=== PATIENT | female | born 1985 | race Two or more races ===

== ENCOUNTER → 2020-12-20 14:53 | Outpatient (BNVA) | payer OTHER, SELFPAY | PROVIDERS: PCP Nurse Practitioner Family; Visit Provider Internal Medicine | DX: S29.012A Strain of muscle and tendon of back wall of thorax, initial encounter (principal); S46.802A Unspecified injury of other muscles, fascia and tendons at shoulder and upper arm level, left arm, initial encounter; X50.1XXA Overexertion from prolonged static or awkward postures, initial encounter | CPT/HCPCS: 73030; 99203 ==

== ENCOUNTER → 2020-12-24 13:38 | Outpatient (BNVA) | payer OTHER, SELFPAY | PROVIDERS: PCP Nurse Practitioner Family; Visit Provider Physician Assistant | DX: S46.912A Strain of unspecified muscle, fascia and tendon at shoulder and upper arm level, left arm, initial encounter (principal); X50.9XXA Other and unspecified overexertion or strenuous movements or postures, initial encounter; M79.632 Pain in left forearm | CPT/HCPCS: 99213 ==

== ENCOUNTER → 2021-01-01 08:28 | Outpatient (BNVA) | payer OTHER, SELFPAY | PROVIDERS: PCP Nurse Practitioner Family; Visit Provider Internal Medicine | DX: M77.12 Lateral epicondylitis, left elbow (principal) | CPT/HCPCS: 99213 ==

== ENCOUNTER → 2021-01-08 11:30 | Outpatient (BNVA) | payer OTHER, SELFPAY | PROVIDERS: PCP Nurse Practitioner Family; Visit Provider Physician Assistant | DX: M77.12 Lateral epicondylitis, left elbow (principal) | CPT/HCPCS: 99213 ==

== ENCOUNTER → 2023-02-11 09:10 | Outpatient (BNVA) | payer MEDICAID, SELFPAY | PROVIDERS: PCP Internal Medicine; Visit Provider Advanced Practice Midwife | DX: N92.6 Irregular menstruation, unspecified (principal); Z32.02 Encounter for pregnancy test, result negative | CPT/HCPCS: 81025; 99212 ==

== ENCOUNTER 2023-04-08 13:07 | Outpatient (REF) | payer MEDICAID, SELFPAY ==
--- NOTE | ~2023-04-08 | XR_ITS ---
EXAMINATION: XR KNEE, LEFT CLINICAL INFORMATION: Pain, bruising and swelling status-post injury. COMPARISON: None available. TECHNIQUE: AP, lateral, and both oblique views of the left knee. FINDINGS: Bones and soft tissues are normal. No fracture or joint effusion. Alignment is anatomic. Joint spaces are well maintained. No abnormal soft tissue calcification. XR/XR knee LT 4V IMPRESSION: Normal left knee.
== END 2023-04-08 13:08 | disposition home or self-care (01) ==
LOC: HO.HHCX 13:07
PROVIDERS: Visit Provider Family Medicine
DX: M25.562 Pain in left knee (principal)
CPT/HCPCS: 73564

== ENCOUNTER 2024-01-19 17:43 | Outpatient (REF) | payer MEDICAID, SELFPAY ==
[2024-01-19 19:06] LABS: Appearance Urine Cloudy; Color Urine Yellow; Glucose Urine UA Negative (Negative); Leukocyte Esterase Urine Negative (Negative); Nitrite Urine Negative (Negative); UMIC TRIGGER UACC YES; Urine Blood Trace (Negative); Urine Ketones Negative (Negative); Urine Protein Negative (Neg-Trace)
[2024-01-19 19:11] LABS: Bacteria Urine 1+ (None Seen); Hyaline Casts Urine 0-2 /LPF (0-2); WBC Urine 0-5 /HPF (0-5)
[2024-01-21 05:48] LABS: C. trachomatis RNA TMA NOT DETECTED (NOT DETECTED); N. gonorrhoeae RNA TMA NOT DETECTED (NOT DETECTED)
== END 2024-01-19 17:44 | disposition home or self-care (01) ==
LOC: HO.HHCLNP 17:43
PROVIDERS: Visit Provider Internal Medicine Geriatric Medicine
DX: M54.50 Low back pain, unspecified (principal); R31.29 Other microscopic hematuria; N93.9 Abnormal uterine and vaginal bleeding, unspecified
CPT/HCPCS: 36415; 81001; 81513; 87491; 87591

== ENCOUNTER 2024-03-03 07:53 | Outpatient (AMB) | payer MEDICAID, SELFPAY ==
--- NOTE | 2024-03-03 08:14 | A.OFFVIS_ITS ---
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 Complaining of irregular menstrual cycles Last Pap/HPV was many years ago [facility] Surgical History History of loop electrical excision procedure (LEEP) History of tubal ligation Social History Household Members: Spouse and Children Housing: House Alcohol intake: never Patient Tobacco Use Status: Never used Tobacco Female Reproductive History Menstrual Date of last menstrual period: 01/06/24 control method: permanent sterilization Total pregnancies: 3 Full term: 3 Number of Living Children: 3 Review of Systems Const All systems reviewed & are unremarkable except as noted in HPI and below Card Reports as per HPI Resp Reports as per HPI GI Reports as per HPI and Reports no additional complaints Reports as per HPI Physical Exam Vital Signs: Last Vital Signs BP 110/68 03/03/24 08:21 BMI result Body Mass Index 32.3 Const General: cooperative, healthy appearing and comfortable Chest Chest palpation & inspection: normal inspection of the chest and normal palpation of entire chest wall Breast/axilla inspection: normal inspection of the breasts and normal inspection of the axillae Breast/axilla palpation: normal palpation of the breasts, normal palpation of the axillae and no axillary lymphadenopathy Resp Effort & Inspection: normal respiratory effort Auscultation: clear to auscultation bilaterally Percussion: percussion normal Cardio Palpation: normal PMI Rate: regular rate Rhythm: regular rhythm Heart sounds: no murmurs and no rubs Peripheral pulses: Peripheral pulses 2+ throughout GI Inspection: Yes normal to inspection Palpation (GI): Soft to palpation, nontender, no guarding, not rigid and No hepatosplenomegaly present Percussion: Yes normal to percussion Auscultation: normal bowel sounds Rectal Exam - Female: deferred General: Yes bladder normal to palpation External Female Exam: No lesion Speculum Exam - Vagina: normal appearance of the vagina, normal palpation, normal vaginal discharge and not erythematous Speculum Exam - Cervix: normal appearance of the cervix and normal palpation Bimanual exam- vagina & uterus: normal bimanual exam, normal palpation, uterine size normal, bladder normal to palpation, consistency normal and normal palpation Bimanual Exam- Adnexa, other: normal adnexae, no masses and no tenderness Results AMB Test Urine AMB Test Urine Negative Last Edit by Flavia Arias CMA on 08:23 Results Reviewed Results Reviewed: Laboratory Last Values Tst Clinic Negative 03/03/24 08:22 Assessment & Plan Assessment & Plan (1) Well woman exam: Code(s): Z01.419 - Encounter for gynecological examination (general) (routine) without abnormal findings Category: Medical Plan: Cotesting done. Counseled the patient about the recommended dietary allowance of 1000 mg of Calcium & 600 IU of vitamin D. The patient was instructed to perform monthly self-breast exams and to schedule an annual exam in a year; All questions answered and the patient verbalized understanding. Instructed the patient to schedule annual exam in a year (2) Abnormal uterine bleeding (AUB): Code(s): N93.9 - Abnormal uterine and vaginal bleeding, unspecified Category: Medical Plan: Co testing done, GC and chlamydia taken CBC, TSH, prolactin, HCG, and pelvic ultrasound ordered. Discussed with the patient the different causes of abnormal bleeding including thyroid disorders, uterine and ovarian pathology, endometrial hyperplasia, carcinoma and other potential causes. Discussed with the patient the work up including CBC (to r/o anemia), TSH, prolactin, pelvic Ultrasound, endometrial biopsy to r/o endometrial pathology. All questions answered and the patient verbalized understanding. Instructed the patient to schedule an appointment for an endometrial biopsy in 2 weeks. Orders: Orders TSH reflex Free T4 Today N93.9 - Abnormal uterine and vaginal bleeding, unspecified HCG Quantitative Today N93.9 - Abnormal uterine and vaginal bleeding, unspecified Complete Blood Count no Diff Today N93.9 - Abnormal uterine and vaginal bleedin g, unspecified AMB HCG Urine Test Today Z32.02 - Encounter for test, result negative Prolactin Today N93.9 - Abnormal uterine and vaginal bleeding, unspecified US pelvic and transvaginal Today N93.9 - Abnormal uterine and vaginal bleeding, unspecified Coding Level of Care Code New Pt Prev Care 18-39yr(03640 Diagnoses Well woman exam Z01.419 Abnormal uterine bleeding (AUB) N93.9
[2024-03-03 08:21] VITALS: BP 110/68; BMI 32.3
== END 2024-03-03 08:16 | disposition home or self-care (01) ==
LOC: HO.HWS 07:53
PROVIDERS: PCP Internal Medicine; Visit Provider Obstetrics & Gynecology
DX: Z01.419 Encounter for gynecological examination (general) (routine) without abnormal findings (principal); N93.9 Abnormal uterine and vaginal bleeding, unspecified; Z32.02 Encounter for pregnancy test, result negative
CPT/HCPCS: 99385

== ENCOUNTER 2024-03-03 07:53 | Outpatient (REF) | payer MEDICAID, SELFPAY ==
[2024-03-03 17:26] LABS: CT PCR NOT DETECTED (Not Detect.); NG PCR NOT DETECTED (Not Detect.)
[2024-03-11 04:04] LABS: HPV mRNA E6/E7 rflx Not Detected (Not Detected)
== END 2024-03-03 07:54 | disposition home or self-care (01) ==
LOC: HO.LNP 07:53
PROVIDERS: PCP Internal Medicine; Visit Provider Obstetrics & Gynecology
DX: Z01.419 Encounter for gynecological examination (general) (routine) without abnormal findings (principal); N93.9 Abnormal uterine and vaginal bleeding, unspecified; Z32.02 Encounter for pregnancy test, result negative
CPT/HCPCS: 0353U; 81025; 87624; 88142; 99385

== ENCOUNTER 2024-11-15 10:19 | Outpatient (AMB) | payer MEDICAID, SELFPAY ==
--- NOTE | 2024-11-15 10:38 | MHC.OFFVIS ---
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 She actually does not need control for control sake she wants something to help her with her heavy crampy miserable periods. She says she had about a month or so last year where they were irregular and that is when she saw Dr. Nichols but she never got called for any appointments after that. She says that ever since then they are very regular and she tracks them with her zechariah and they last 4 days but they are very heavy she is not having any irregular bleeding at all. She has her tubes tied so she did not need control per se. [facility] Surgical History History of loop electrical excision procedure (LEEP) History of tubal ligation Social History Household Members: Spouse and Children Housing: House Alcohol intake: never Patient Tobacco Use Status: Never used Tobacco Patient : No Female Reproductive History Menstrual Age of Menarche: 11 Duration of menses: 3-5 days Date of last menstrual period: 10/19/24 control method: permanent sterilization Permanent Sterilization: BTL Total pregnancies: 3 Full term: 3 Number of Living Children: 3 History of abnormal pap smear: Yes (more than 15 years ago) History of STI: Yes (Chlamydia in twenties) Physical Exam Vital Signs: Last Vital Signs BP 102/70 11/15/24 10:45 BMI result Body Mass Index 34.2 Other: Multiparous cervix there is a creamy yellowish slightly bubbly discharge that may be consistent with either BV or trich we will await testing results. External Female Exam: normal external appearance and normal appearance of the urethra Speculum Exam - Vagina: normal appearance of the vagina Speculum Exam - Cervix: normal appearance of the cervix and Cervical os closed Assessment & Plan Assessment & Plan (1) Menorrhagia with regular cycle: Code(s): N92.0 - Excessive and frequent menstruation with regular cycle Category: Medical (2) Encounter for screening examination for sexually transmitted disease: Code(s): Z11.3 - Encounter for screening for infections with a predominantly sexual mode of transmission Category: Medical Plan Reviewed her menses. Per her history today they are very regular and heavy lasting 4 days and there was only the 1 time that they were irregular and that is when she saw Dr. Nichols. Given this it may not be necessary to do all of the testing that was propose at that time unless that recurs. 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 She has used Depo-Provera the Nexplanon or Implanon when she used it, and now she has her tubes tied. Her children a 1916 and 14. Her last menstrual period was October 19 and her zechariah is telling her periods due in 2 days in her previous period before that was September 25 and previous to that was August 30 all of them lasting 4 day she has needed to call out of work because of the cramping. Discussed the screening for STIs testing done today for gonorrhea chlamydia trichomoniasis and I ordered testing for HIV hep B hep C and syphilis which she can get downstairs in the lab. Discussed that if there is anything to treat vaginally which I suspect there might be then we would need to treat that 1st and have a negative test of cure before we would place a Mirena.. Otherwise proposed a Mirena IU S with levonorgestrel to helps in the lining of the uterus and make her periods hydraulic press operator discussed that some women have their periods actually go away but even if they get hydraulic press operator than that would be an improvement. Discussed the reasons why I prefer to insert at beginning of her. Both it is more easy for her and also the provider but also it helps her bleeding profile going forward. Discussed that she should call when she gets her.. She is on the portal and may check her lab results herself but told to expect that we maybe calling her if there is anything to treat. Coding Level of Care Code Est Pt Level 3 (19908) Diagnoses Menorrhagia with regular cycle N92.0 Encounter for screening examination for sexually transmitted disease Z11.3 Time Spent (min) 25 Comment Discussing bleeding profile, potential STIs, and IUS..
[2024-11-15 10:45] VITALS: BP 102/70; BMI 34.2
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
== END 2024-11-15 11:27 | disposition home or self-care (01) ==
PROVIDERS: PCP Internal Medicine; Visit Provider Advanced Practice Midwife
DX: N92.0 Excessive and frequent menstruation with regular cycle (principal); Z11.3 Encounter for screening for infections with a predominantly sexual mode of transmission
CPT/HCPCS: 99213

== ENCOUNTER 2024-11-15 10:19 | Outpatient (REF) | payer MEDICAID, SELFPAY ==
--- OUTSIDE RECORDS SUMMARY | 2024-11-15 13:04 | XMS_ITS | Clinical Summary ---
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 and [facility] paperwork requesting intermittent leave for PT and [...] if no improvement -advised pt to contact [facility] if her pain worsens after returning back to work Daytime somnolence 09/15/2022 Headache 09/15/2022 Migraine without aura, not refractory 09/15/2022 Pain of right breast 09/15/2022 Visual impairment 09/15/2022 Mild intermittent asthma 10/07/2017 Encounters Date Type Department Care Team Description 10/13/2024 Telephone [facility] MED[facility]INE [address] [place] [phone] Maren Abdullahi MD November recall from Last [...] Description 12/13/2024 3:15 PM EST Procedure Visit [facility] [address] [place] [address] Maren Abdullahi MD [address] [place] [address] Health Maintenance Due Date Last Done Comments [...] HPV nRNA E6/E7 Not Detected Not Detected [facility] Comment:Methodology: Transcr iption-Mediated AmplificationThis assay detects E6/E7 viral messenger RNA (mRNA) from 14high-risk HPV types (16,18,31,33,35,39,45,51,52,56,58,59,66,68).Cervical sources are required for HPV testing.If a vaginal source from a patient who has had atotal hysterectomy with removal of cervix wassubmitted, please contact the testing laboratoryfor alternative testing options.For additional information, please refer tohttp://[email or web address]/faq/[email or web address](This link if provided for information/educational purposes only.)THIS TEST WAS PERFORMED AT:[employer] [place] [phone] MERIDA MD HPV mRNA E6/E7 TNP [facility] HPV 16 RNA TNP [facility] HPV 18/45 RNA [facility] 03/03/2024 8:36 AM EDT 03/07/2024 7:25 AM EDT Maren Abdullahi MD LAB CYTOLOGY ORDERABLES Final Result [facility] [address] [place] [address] [phone] * Pap Smear (03/03/2024 8:36 AM EDT) 03/03/2024 8:36 AM EDT 03/07/2024 7:25 AM EDT Narrative [facility] - 03/23/2024 4:55 PM EDT ----- ------- Name: Lisa Coburn ?Age/Sex: 38/F ? : 1985 Unit#: [id number] ?? Attend Dr: Alex Nichols MD ?Re03/03/24 ?Status: DEP REF ? Location: HO.LN ?Disch: ? ----- ------- SPEC : [id number] ? RECD: 03/07/24 ? STATUS: ??SOUT ? REQ NUM: [id number] ? BEV: 03/03/24-36 ? SUBM DR: Alex [...] 66, 68) ? HPV testing performed by [facility], [place], [place]. ??See reference laboratory ?? portion of the EMR for entire report. ?Clinical Information LMP:UNK Previous PAP test:UNK ? Material Received ?? ThinPrep-Cervical Copies To: ?? Maren Abdullahi MD ?? [address] [facility] ?? [place] [address] ? Alex Nichols MD ?? [address] [facility] ?? [place] [address] ?? [phone] ----- ------- Signed (signature on file) Esme Cabezas MD 03/23/24 3476 ? ----- ------- ? END OF REPORT ? us Generic External Data Provider LAB CYTOLOGY KYLE ULLOA Final Result [facility] [address] [place] [address] [phone] * HIV AB/AG (06/05/2020 11:17 AM EDT) [facility] HIV AG/AB NONREACTIVE NR FOUNDATI ON LAB [...] detection of this assay. ?? [employer] HIV Ag/Ab Combo assay result and supplemental assay results should be interpreted in conjunction with the patient's clinical presentation, history and other laboratory results. ??If the results are inconsistent with clinical evidence, additional testing is suggested to confirm the result. 06/05/2020 11:1 7 AM EDT us Historical Provider HISTORICAL/NON ORDERABLE LABS Final Result [facility] [address] from Last 3 Months or Most Recently Relevant to Health Maintenance Insurance C3 Care Teams Hospital Liaison Relationship Specialty Start Date End Date Maren Abdullahi MD [address] [place] [phone] PCP - General Family Medicine 11/23/20
[2024-11-16 06:15] LABS: CT PCR NOT DETECTED (Not Detect.); NG PCR NOT DETECTED (Not Detect.)
[2024-11-16 11:11] LABS: Bacterial Vaginosis PCR POSITIVE (Negative); Candida Group PCR NOT DETECTED (Not Detect); Candida glab krusei PCR NOT DETECTED (Not Detect); Trichomonas vaginalis PCR NOT DETECTED (Not Detect)
== END 2024-11-15 10:20 | disposition home or self-care (01) ==
LOC: HO.LAB 10:19
PROVIDERS: PCP Internal Medicine; Visit Provider Advanced Practice Midwife
DX: N92.0 Excessive and frequent menstruation with regular cycle (principal); Z20.2 Contact with and (suspected) exposure to infections with a predominantly sexual mode of transmission; Z11.3 Encounter for screening for infections with a predominantly sexual mode of transmission; N89.8 Other specified noninflammatory disorders of vagina
CPT/HCPCS: 81515; 87491; 87591; 99212

== ENCOUNTER 2024-11-15 11:49 | Outpatient (REF) | payer MEDICAID, SELFPAY ==
[2024-11-15 13:32] LABS: Hematocrit 40.7 % (37.0-47.0); Hemoglobin 13.4 g/dl (12.0-16.0); Mean Corpuscular HGB Conc 32.9 g/dl (31.0-35.0); Mean Corpuscular Hemoglobin 30.3 pg (27.0-33.0); Mean Corpuscular Volume 92.1 fL (80.0-98.0); Mean Platelet Volume 11.2 fL (9.4-12.3); Platelet Count 277 X10*3/uL (160-400); Red Blood Count 4.42 X10*6/uL (4.20-5.50); Red Cell Distribution Width 12.3 % (11.0-16.0); White Blood Count 6.7 X10*3/uL (4.8-10.8)
[2024-11-15 14:11] LABS: HCG Quantitative < 2 mIU/mL; TSH reflex Free T4 2.39 uIU/mL (0.32-4.0)
[2024-11-16 16:08] LABS: Prolactin 9.4 ng/mL
== END 2024-11-15 11:50 | disposition home or self-care (01) ==
LOC: HO.HHCL 11:49
PROVIDERS: Visit Provider Obstetrics & Gynecology
DX: N93.9 Abnormal uterine and vaginal bleeding, unspecified (principal)
CPT/HCPCS: 36415; 84146; 84443; 84702; 85027

== ENCOUNTER 2025-02-13 10:36 | Outpatient (AMB) | payer MEDICAID, SELFPAY ==
--- NOTE | 2025-02-13 11:01 | A.OFFVIS_ITS ---
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 She had her tubes tied so she does not need it for contraception but her periods have been getting heavier and heavier and she wants to do something about it she had a Mirena several years ago and had no issues with it so she is eager to try it again. She had BV in October and took the metronidazole and noticed an improvement in her discharge. She has no concerns about STIs at all. [facility] Surgical History History of loop electrical excision procedure (LEEP) History of tubal ligation Social History Household Members: Spouse and Children Housing: House Alcohol intake: never Patient Tobacco Use Status: Never used Tobacco Female Reproductive History Menstrual Age of Menarche: 11 Date of last menstrual period: 01/10/25 Total pregnancies: 3 Full term: 3 Date of last pap smear: 03/03/24 (negative pap smear, negative hpv ) History of abnormal pap smear: Yes Physical Exam Vital Signs: Last Vital Signs BP 112/72 02/13/25 11:04 BMI result Body Mass Index 33.9 Other: Very heavy menses noted bimanual done. Cervix multiparous very posterior deep in pelvis uterus small to medium sized anteverted mobile nontender adnexa nontender. See procedures for insertion but easy insertion procedure wants cervix fully visualized with the use of a very long large Graves speculum. Uterus sounded to 8 and half cm. Smooth insertion of Mirena IU S and strings trimmed to 2-1/2-3 cm very little bleeding from tenaculum sites but large heavy menses. Patient will be seeing her primary care provider this coming Juan Luis and I recommend getting a CBC so that we can then assess for anemia and if she is anemic then we can assess for improvement over time. External Female Exam: normal external appearance Speculum Exam - Vagina: normal appearance of the vagina and normal vaginal discharge Speculum Exam - Cervix: normal appearance of the cervix Bimanual exam- vagina & uterus: normal bimanual exam, uterine size normal, consistency normal, uterine mobility normal, uterine shape normal and non-tender Bimanual Exam- Adnexa, other: normal adnexae, no masses and No adnexal tenderness Office Procedures IUD Insert/Removal Details Details: ---Patient is here for her IUD insertion. Is on day 2 of her menses. Bimanual exam was done. Her uterus is firm, nontender, and appropriate sized, and is antiverted . The cervix was swabbed with Betadine. Tenaculum was placed on the cervix slowly to minimize cramping. The uterus was sounded slowly and gently she show a measurement of 8.5 cm. The IUD was removed from its package, after checking identifying information and lot dates and expiration dates and and gently inserted into the os, as per the IUD insertion procedure. * The strings were then trimmed to 2.5-3 centimetres. The tenaculum was removed and gentle pressure applied with a swab, until any bleeding subsided from the tenaculum sites. The speculum was gently removed. The patient sat up. I Reviewed what to expect, and what indications would necessitate a call. Pt to call for fever, untoward pain or cramping. I reviewed any appropriate backup method. Pt to return for recheck as scheduled. 59886-OHC Insertion Procedure code (CPT) selection complete Office Meds Mirena 21 mcg/24 hr (up to 8 years) 52 mg intrauterine device Performing Provider: Elena Velez CNM Performing Location: [facility] Administered by: Flavia Arias CMA on 02/13/25 13:09 Dose Route Admin Location Dispensed Lot Number Expiration Date [facility] Application Administrator 1 device intrauterine 1 ea Results AMB Test Urine AMB Test Urine Negative Last Edit by Flavia Arias CMA on 13:11 Results Reviewed Results Reviewed: Laboratory Last Values [facility] Negative 02/13/25 13:02 Name: Lisa Coburn Age/Sex: 39/F : 1985 Unit#: [id number] Attend Dr: Elena Velez Tavia SANIYA Re11/15/24 Status: DEP REF Location: .LAB Disch: SPEC : [id number] BEV: 11/15/24-UNK STATUS: COMP REQ : [id number] RECD: 11/15/[address]: Elena Velez [facility] COMP: 11/16/24-1111 ENTERED: 11/15/[address]: Maren Abdullahi MD ORDERED: BV Panel Test Result Flag Reference TV PCR NOT DETECTED Not Detect BV PCR POSITIVE A Negative The BV organism targets of the Xpert Xpress MVP test can be commensal in women; Xpert Xpress MVP positive results for bacterial vaginosis should be considered in conjunction with other clinical and patient information to determine the disease status. Organisms that are not detected by the Xpert Xpress MVP test have also been reported to be associated with BV and aerobic vaginitis. The Xpert Xpress MVP test performance has not been evaluated in patients under the age of 14. Kayla Grp PCR NOT DETECTED Not Detect Can gla-kru NOT DETECTED Not Detect END OF REPORT Assessment & Plan Assessment & Plan (1) Menorrhagia with regular cycle: Code(s): N92.0 - Excessive and frequent menstruation with regular cycle Category: Medical (2) Encounter for insertion of Mirena IUD: Code(s): Z30.430 - Encounter for insertion of intrauterine contraceptive device Category: Medical (3) Presence of 52 mg levonorgestrel-releasing intrauterine device (IUD): Comment: Inserted today 02/13/2025 on day 2 of her heavy menses into 8-1/2 cm sounded anteverted uterus no problems. Code(s): Z97.5 - Presence of (intrauterine) contraceptive device Category: Social Hx Plan Very heavy menses noted bimanual done. Cervix multiparous very posterior deep in pelvis uterus small to medium sized anteverted mobile nontender adnexa nontender. See procedures for insertion but easy insertion procedure wants cervix fully visualized with the use of a very long large Graves speculum. Uterus sounded to 8 and half cm. Smooth insertion of Mirena IU S and strings trimmed to 2-1/2-3 cm very little bleeding from tenaculum sites but large heavy menses. Patient will be seeing her primary care provider this coming Thursday and I recommend getting a CBC so that we can then assess for anemia and if she is anemic then we can assess for improvement over time. Orders: Orders AMB IUD Insertion/Removal - Patient Supply Today Z30.430 - Encounter for insertion of intrauterine contraceptive device AMB IUD Insertion/Removal - Practice Supplied Today Z30.430 - Encounter for insertion of intrauterine contraceptive device AMB IUD Insertion/Removal - Practice Supplied Today Z30.430 - Encounter for insertion of intrauterine contraceptive device AMB HCG Urine Test Today Z32.02 - Encounter for test, result negative Medications: New ParaGard T 380A (copper) 1 device intrauterine ONCE 1 ea 0RF NS Z30.430 - Encounter for insertion of intrauterine contraceptive device Mirena (levonorgestrel) 1 device intrauterine ONCE 1 ea 0RF NS Z30.430 - Encounter for insertion of intrauterine contraceptive device Mirena (levonorgestrel) 1 device intrauterine ONCE 1 ea 0RF NS Z30.430 - Encounter for insertion of intrauterine contraceptive device Coding Level of Care Code Est Pt Level 3 (63163) Diagnoses Menorrhagia with regular cycle N92.0 Encounter for insertion of Mirena IUD Z30.430 Presence of 52 mg levonorgestrel-releasing intrauterine device (IUD) Z97.5 CPT Codes Details - CPT: 65484-RBQ Insertion ([id number])
[2025-02-13 11:04] VITALS: BP 112/72; BMI 33.9
--- OUTSIDE RECORDS SUMMARY | 2025-02-13 12:31 | XMS_ITS | Clinical Summary ---
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 Name Role Phone Maren Abdullahi MD Primary [...] ligamental injury though no mechanical symptoms - [place] paperwork completed in office for her [employer] staffing agency and [facility] paperwork requesting intermittent leave for PT [...] if no improvement -advised pt to contact [facility] if her pain worsens after returning back to work Daytime somnolence 09/15/2022 Headache 09/15/2022 Migraine without aura, not refractory 09/15/2022 Pain of right breast 09/15/2022 Visual impairment 09/15/2022 Mild intermittent asthma 10/07/2017 Encounters Date Type Department Care Team Description 02/10/2025 Patient Outreach [facility] & PEDS [address] [facility] [place] [address] Maren Abdullahi MD Pre-visit Planning (SDOH negative. Tobacco screening negative.) 12/30/2024 Population Health Risk Score [facility] (C3) Department [address] [facility] [address] [place] [address] Provider, Population Health Generic 12/07/2024 Telephone [facility] MEDICINE [address] [place] [address] Maren Abdullahi MD 12/06/2024 Travel 11/15/2024 Orders Only GENERIC EXTERNAL DATA DEPARTMENT Provider, Generic External Data from Last 3 Months Immunizations Name Administration Dates Next Due DTaP 12/23/1990, 8,01/11/1987,1986 Hep A, Adult 12/28/2014,09/22/2013 Hep B, Adolescent or Pediatric 01/10/1998,1996,08/19/1997 Hib (HbO) 12/23/1990 IPV 12/23/1990, 8,11/12/1987,1986 Influenza, Split (incl. [...] your housing situation today? I have osorio garrison 02/10/[address] you li ve. Do you have problems with any of the following? None of the above 02/10/2025 Food Insecurity Answer Date Recorded Within the past 12 months, y ou worried that your food would run out before you got money to buy more: Never True 02/10/2025 Within the past 12 months,th e food you bought just didn't last and you didn't have enough money to get more: Never True Transportation Answer Date Recorded In the past 12 months, has l ack of transportation kept you from medical appts, meetings, work or from getting things needed for daily living? No 02/10/2025 Utilities Answer Date Recorded In the past 12 months, has t he electric, gas, oil or water company threatened to shut off services in your home? No 02/10/2025 Depression Answer Date Recorded Patient Health Questionnaire-2 Score 0 04/08/2023 Internet Access Answer Date Recorded Internet Access Q1 Yes 02/10/2025 Internet Access Q2 Not on file 02/10/2025 Comments Unknown Sex and Gender Information Value [...] Care Team (Late st Contact Info) Description 02/17/2025 11:45 AM EDT Office Visit [facility] MEDICINE [address] [place], [place] [phone] Maren Abdullahi MD [address] [place] [address] Health Maintenance Due Date Last Done Comments Alcohol/Substance Use Screening 1998 Family Planning (PISQ) 2001 Hepatitis C Screening 2004 Pneumococcal Vaccine: Pediatrics (0 to 5 Years) and At-Risk Patients (6 to 49) Years) (1 of 2 - PCV) 2005 DTaP/Tdap/Td Vaccines (6 - Td or Tdap) 03/24/2021 03/24/2011, 01/31/2011, 03/16/2001, Additional history exists Depression Screening 04/08/2024 04/08/2023, 04/08/20 23 COVID-19 Vaccine (1 - season) 2024 Influenza Vaccine (#1) 2024 09/22/2013 Tobacco Screening 02/15/2025 02/16/2024 SDOH Screening 02/10/2026 02/10/2025 Pap Smear 03/03/2027 03/03/2024, 11/27/2021 Cervical Cancer [...] Procedure Name Priority Date/Time Associated Diagnosis Comments BACTERIAL VAGINOSIS PANEL Routine 11/15/2024 12:00 AM EST CHLAMYDIA/N. GONORRHOEAE RNA, TMA, UROGENITAL Routine 11/15/2024 12:00 AM EST HPV MRNA E6/E7 REFLEX TO HPV 16, 18/45 Routine 03/03/2024 8:36 AM EDT PAP SMEAR Routine 03/03/2024 8:36 AM EDT ZZZ HISTORICAL HIV AB/AG Routine 06/05/2020 11:17 AM EDT from Last 3 Months or Most Recently Relevant to Health Maintenance Results * (ABNORMAL) Bacterial Vaginosis (11/15/2024 12:00 AM EST) TRICHOMONAS VAGINALIS DETECTION BY PCR NOT DETECTED Not Detect [facility] BACTERIAL VAGINOSIS DETECTION BY PCR POSITIVE(A) Negative [facility] Comment:The BV organism targ ets of the Xpert Xpress MVP test can becommensal in women; Xpert Xpress MVP positive results forbacterial vaginosis should be considered in conjunction withother clinical and patient information to determine thedisease status. Organisms that are not detected by the XpertXpress MVP test have also been reported to be associatedwith BV and aerobic vaginitis.The Xpert Xpress MVP test performance has not been evaluatedin patients under the age of 14. KAYLA GROUP DETECTION BY PCR NOT DETECTED Not Detect [facility] Kayla glab krusei PCR NOT DETECTED Not Detect [facility] 11/15/2024 11/15/2024 Generic External Data Provider LAB MICROBIOLOGY - GENERAL ORDERABLES Final Result [facility] [address] [place] [phone] * Chlamydia/N. Gonorrhoeae RNA, TMA, Urogenitial (11/15/2024 12:00 AM EST) CT PCR NOT DETECTED Not Detect. [facility] Comment:A not detected test result does not exclude the possibilityof infection because test results can be affected byimproper specimen collection, concurrent antibiotic therapy,or the number of organisms in the specimen which may bebelow the sensitivity of the test. As with many diagnostictests, results from the Xpert CT/NG assay should beinterpreted in conjunction with other laboratory andclinical data available to the clinician.Xpert CT/NG performance has not been evaluated in patientsless than 14 years of age. The assay should not be used forthe evaluationof suspected sexual abuse or for other medico-legalindications. Additional testing is recommended in anycircumstance when false positive or false negative resultscould lead to adverse medical, social or psychologicalconsequences. NG PCR NOT DETECTED Not Detect. [facility] Comment:A not detected test result does not exclude the possibilityof infection because test results can be affected byimproper specimen collection, concurrent antibiotic therapy,or the number of organisms in the specimen which may bebelow the sensitivity of the test. As with many diagnostictests, results from the Xpert CT/NG assay should beinterpreted in conjunction with other laboratory andclinical data available to the clinician.Xpert CT/NG performance has not been evaluated in patientsless than 14 years of age. The assay should not be used forthe evaluationof suspected sexual abuse or for other medico-legalindications. Additional testing is recommended in anycircumstance when false positive or false negative resultscould lead to adverse medical, social or psychologicalconsequences. 11/15/2024 11/15/2024 Narrative [facility] - 11/16/2024 6:15 AM EST Vaginal Generic External Data Provider LAB MICROBIOLOGY - GENERAL ORDERABLES Final Result [facility] [address] [place] [phone] * HPV mRNA E6/E7 w/Reflex to HPV Genotypes 16, 18/45 (03/03/2024 8:36 AM EDT) HPV nRNA E6/E7 Not Detected Not Detected [facility] Comment:Methodology: Transcr iption-Mediated AmplificationThis assay detects E6/E7 viral messenger RNA (mRNA) from 14high-risk HPV types (16,18,31,33,35,39,45,51,52,56,58,59,66,68).Cervical sources are required for HPV testing.If a vaginal source from a patient who has had atotal hysterectomy with removal of cervix wassubmitted, please contact the testing laboratoryfor alternative testing options.For additional information, please refer tohttp://education.Wevod/faq/PGS838l7(This link if provided for information/educational purposes only.)THIS TEST WAS PERFORMED AT:[facility] [place] [phone] MERIDA MD HPV mRNA E6/E7 TNP [facility] HPV [facility] HPV 18/45 RNA [facility] 03/03/2024 8:36 AM EDT 03/07/2024 7:25 AM EDT Maren Abdullahi MD LAB CYTOLOGY ORDERABLES Final Result [facility] [address] [place] [phone] [phone] * Pap Smear (03/03/2024 8:36 AM EDT) 03/03/2024 8:36 AM EDT 03/07/2024 7:25 AM EDT Narrative [facility] - 03/23/2024 4:55 PM EDT ----- ------- Name: Lisa Coburn ?Age/Sex: 38/F ? : 1985 Unit#: [id number] ?? Attend Dr: Alex Nichols MD ?Re03/03/24 ?Status: DEP REF ? Location: HO.LNP ?Disch: ? ----- ------- SPEC : [id number] ? RECD: 03/07/24 ? STATUS: ??SOUT ? REQ NUM: [id number] ? BEV: 03/03/24-0836 ? SUBM DR: Alex Nichols MD ? ENTERED: ??03/07/24-1059 ?SP TYPE: Pap Smr ?OTHR DR: Maren [...] 66, 68) ? HPV testing performed by [employer], [place], [place]. ??See reference laboratory ?? portion of the EMR for entire report. ?Clinical Information LMP:UNK Previous PAP test:UNK ? Material Received ?? ThinPrep-Cervical Copies To: ?? Maren Abdullahi MD ?? [address] [facility] ?? [place] [address] ? Alex Nichols MD ?? [address] [facility] ?? [place] [address] ?? [phone] ----- ------- Signed (signature on file) Esme Cabezas MD 03/23/24 1495 ? ----- ------- ? END OF REPORT ? us Generic External Data Provider LAB CYTOLOGY KYLE ULLOA Final Result [facility] [address] [place] [phone] [phone] * HIV AB/AG (06/05/2020 11:17 AM EDT) [facility] Signature HIV AG/AB NONREACTIVE NR FOUNDATI ON LAB [...] detection of this assay. ?? [employer] Worker HIV Ag/Ab Combo assay result and supplemental assay results should be interpreted in conjunction with the patient's clinical presentation, history and other laboratory results. ??If the results are inconsistent with clinical evidence, additional testing is suggested to confirm the result. 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
--- OUTSIDE RECORDS SUMMARY | 2025-02-13 12:31 | XMS_ITS | Encounter Summary ---
Author Organization [employer] Address [address] [place] [address] Care Team Providers Care Investigator Internal Revenue Name Role Phone Maren Abdullahi MD Primary Care Provider + Reason for Visit * Reason Comments Pre-visit Planning SDOH negative. Tobac co screening negative. Encounter Details Date Type Department Care Team ([facility] st Contact Info) Description 02/10/2025 Patient Outreach [facility] [address] [place] [address] Maren Abdullahi MD [address] [place] [address] Pre-visit Planning (SDOH negative. Tobacco screening negative.) Social History Tobacco Use Types Packs/Day Years Used Date Smoking Tobacco: Never Passive Smoke Exposure: Never Smokeless Tobacco: Never Alcohol Use Standard Drinks/Week Comments Never 0 [...] not to disclose 2021 10:14 AM EDT documented as of this encounter Progress Notes * Sapphire Kennedy - 02/10/2025 11:55 AM EDT CC Sapphire Gomes placed successful outbound call to patient for pre-visit planning. Patient name and confirmed. Patient confirms appt date and time, and has transportation arrangements. Biggest concern for appointment at this time is anxiety its worsening, pain on left leg after accident and patient needs refills on acid reflux and pain medication. Patient has been constantly having headaches. Appropriate screenings completed in anticipation of appointment. documented in this encounter Plan of Treatment Upcoming Encounters Date Type Department Care Team (Late st Contact Info) Description 02/17/2025 11:45 AM EDT Office Visit [facility] [address] [place] [address] Maren Abdullahi MD [address] [place] [address] documented as of this encounter Visit Diagnoses Not on filedocumented in this encounter Additional Health Concerns Assessment Noted Time PHQ-9 Depression Total Score: 0 04/08/20 23 11:23 AM EDT documented as of this encounter Care Teams Investigator Internal Revenue Relationship Specialty Start Date End Date Maren Abdullahi MD [address] [place] [address] PCP - General Family Medicine 11/23/20 documented as of this encounter
== END 2025-02-13 12:02 | disposition home or self-care (01) ==
LOC: HO.HWS 10:36
PROVIDERS: PCP Internal Medicine; Visit Provider Advanced Practice Midwife
DX: N92.0 Excessive and frequent menstruation with regular cycle (principal); Z30.430 Encounter for insertion of intrauterine contraceptive device; Z97.5 Presence of (intrauterine) contraceptive device; Z32.02 Encounter for pregnancy test, result negative
CPT/HCPCS: 58300; 99213

== ENCOUNTER → 2025-02-13 10:36 | Outpatient (BNVA) | payer MEDICAID, SELFPAY | PROVIDERS: PCP Internal Medicine; Visit Provider Advanced Practice Midwife | DX: Z30.430 Encounter for insertion of intrauterine contraceptive device (principal); N92.0 Excessive and frequent menstruation with regular cycle | CPT/HCPCS: 58300; 81025; 99212; J7298 ==

== ENCOUNTER 2025-03-09 09:19 | Outpatient (AMB) | payer MEDICAID, SELFPAY ==
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
[2025-03-09 09:35] VITALS: BP 124/62; BMI 34.2
--- NOTE | 2025-03-09 09:35 | A.OFFVIS_ITS ---
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 She is still bleeding lightly since not enough to change the pad frequently but when she goes to the bathroom she sees there is some blood on it. She has had her tubes tied the IUD was placed because of heavy periods. She has noticed that she has gained some weight and she is happy with the wants to do something about it she will be seeing her primary care provider soon. PENDING SALE TO [facility] Surgical History History of loop electrical excision procedure (LEEP) History of tubal ligation Social History Household Members: Spouse and Children Housing: House Alcohol intake: never Patient Tobacco Use Status: Never used Tobacco Female Reproductive History Menstrual Age of Menarche: 11 Date of last menstrual period: 02/13/25 control method: progestin IUCD Total pregnancies: 3 Full term: 3 History of abnormal pap smear: Yes (14 years ago) History of STI: No Physical Exam Vital Signs: Last Vital Signs BP 124/62 03/09/25 09:35 BMI result Body Mass Index 34.2 Const General: healthy appearing, comfortable, no acute distress, well developed and alert Nutritional Appearance: average body habitus Orientation/consciousness: patient oriented x3 Limitations: no limitations HEENT Head: Yes normocephalic Neck Neck: Yes normal visual inspection Chest Chest palpation & inspection: normal inspection of the chest Breast/axilla inspection: normal inspection of the breasts and normal inspection of the axillae Breast/axilla palpation: normal palpation of the breasts and normal palpation of the axillae Resp Effort & Inspection: normal respiratory effort GI Inspection: Yes normal to inspection, No Abdominal wall edema and No distended Palpation (GI): Soft to palpation and nontender Other: normal speculum exam, light menstrual type bleeding . multiparous cervix w mirena. Exam within normal limits cervix mobile nontender slightly firm (has history of LEEP in past). Fair tone with Kegel coached in Values of [employer]. General: Yes bladder normal to palpation External Female Exam: normal external appearance and normal appearance of the urethra Speculum Exam - Vagina: normal appearance of the vagina, normal palpation and normal vaginal discharge Speculum Exam - Cervix: normal appearance of the cervix, normal palpation and nontender Bimanual exam- vagina & uterus: normal bimanual exam, normal palpation, uterine size normal, bladder normal to palpation, consistency normal, normal palpation, uterine mobility normal, uterine shape normal, No Cervical tenderness present, non-tender and no cervical motion tenderness Bimanual Exam- Adnexa, other: normal adnexae, no masses, normal and No adnexal tenderness Neuro General: patient oriented x3 Results Reviewed Results Reviewed: Gynecologic Cytology [id number] ____ Name: Lisa Coburn Age/Sex: 38/F Attending: Alex Nichols MD : 1985 Submitted by: Alex Nichols MD Copies to: Maren Abdullahi MD MR #: [id number] Status: DEP REF Collected: 03/03/24 Location: [facility] Received: 03/07/24 Interpretation Satisfactory for evaluation. Negative for intraepithelial lesion or malignancy. 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 HPV mRNA E6/E7: NOT DETECTED This assay detects E6/E7 viral messenger RNA (mRNA) from 14 high-risk HPV types (16, 18, 31, 33, 35, 39, 45, 51, 52, 56, 58, 59, 66, 68) HPV testing performed by [facility], [place], [place]. See reference laboratory portion of the EMR for entire report. Clinical Information LMP:UNK Previous PAP test:UNK Material Received ThinPrep-Cervical Copies To Maren Abdullahi MD [address] [place] [phone] Alex Nichols MD [address] [place] [address] Dr. Stephens [address] [place] [phone] Electronically Signed By: Esme Cabezas MD 03/23/24 7715 The Pap Test is a screening procedure with the inherent possibility of both false negative and false positive results. Results should be interpreted in the context of historic and current clinical findings. Reliability of the Pap Test is enhanced by performing the test on a regular repetitive basis. Patient: Lisa Coburn Age/Sex: 38/F MR#: [id number] Page 1 of 1 Assessment & Plan Assessment & Plan (1) Well woman exam: Code(s): Z01.419 - Encounter for gynecological examination (general) (routine) without abnormal findings Category: Medical (2) Abnormal uterine bleeding (AUB): Code(s): N93.9 - Abnormal uterine and vaginal bleeding, unspecified Category: Medical (3) Menorrhagia with regular cycle: Code(s): N92.0 - Excessive and frequent menstruation with regular cycle Category: Medical (4) Presence of 52 mg levonorgestrel-releasing intrauterine device (IUD): Comment: Inserted today 02/13/2025 on day 2 of her heavy menses into 8-1/2 cm sounded anteverted uterus no problems. Code(s): Z97.5 - Presence of (intrauterine) contraceptive device Category: Social Hx (5) Obesity (BMI 30.0-34.9): Code(s): E66.811 - Obesity, class 1 Category: Medical Plan -----Discussed in this visit the following: healthy balanced diet, regular and consistent exercise, getting recommended health screens, doing the best she can for her particular health concerns, kegel exercises, pap smear screening and followup recommendations, mammography screening and SBE, normal changes in cycles in her life stage--- Discussed in general terms the challenges of obesity and challenges for her health and efforts she is engaging in to manage this including dietary changes water intake attention to sleep inclusion of a regular exercise have it and dealing with the may need stressors of life that can contribute to obesity in general. Encouraged her to continue in all have her best efforts. Discussed her plans to go to [place] in June with the family so that is a wonderful goal to aim for in terms of getting healthier and weight loss. Discussed diet in general she loves eating fresh healthy vegetables and she gets farm fresh eggs. Discussed the dangers of carbs including rice in her case ( potatoes in mine) and bread in everyone's diet!. Also discussed importance of daily aerobic exercise. 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 She will be seeing her primary care provider soon suggested having a discussion about it too and also when she gets all of her fasting blood work should anything be a miss such as pre diabetes sometimes there were qualifications that would qualify her for use of any of the medications that are helping people to lose weight but a discussion is in order in any case. discussed the continued breakthrough bleeding with the mirena. I recommend giving it at least 6 months to see if there isn't improvement in her menses if in 3 months she is still bleeding all the time then to contact us and I might consider doing an ultrasound just to make sure it is placed correctly. Some breakthrough bleeding in readjustment. However is normal. In addition though is in 6 months she was still having very problematic bleeding she would want to see the commercial underwriter to discuss other alternatives.. Also discussed keeping track of her periods symptoms even if her periods get light enough to almost go away so that when she is planning her mammogram at age 41 she will be attuned to those symptoms and can schedule her mammogram when her breasts are not so tender. Coding Level of Care Code Est Pt Prev Care 18-39y([id number]) Diagnoses Well woman exam Z01.419 Abnormal uterine bleeding (AUB) N93.9 Menorrhagia with regular cycle N92.0 Presence of 52 mg levonorgestrel-releasing intrauterine device (IUD) Z97.5 Obesity (BMI 30.0-34.9) E66.811
== END 2025-03-09 11:55 | disposition home or self-care (01) ==
LOC: HO.HWSM 09:19
PROVIDERS: PCP Internal Medicine; Visit Provider Advanced Practice Midwife
DX: Z01.419 Encounter for gynecological examination (general) (routine) without abnormal findings (principal); N93.9 Abnormal uterine and vaginal bleeding, unspecified; N92.0 Excessive and frequent menstruation with regular cycle; Z97.5 Presence of (intrauterine) contraceptive device; E66.811 Obesity, class 1
CPT/HCPCS: 99395; 99459

== ENCOUNTER → 2025-03-09 09:19 | Outpatient (BNVA) | payer MEDICAID, SELFPAY | PROVIDERS: PCP Internal Medicine; Visit Provider Advanced Practice Midwife | DX: Z01.419 Encounter for gynecological examination (general) (routine) without abnormal findings (principal); N93.9 Abnormal uterine and vaginal bleeding, unspecified; N92.0 Excessive and frequent menstruation with regular cycle; E66.811 Obesity, class 1; Z97.5 Presence of (intrauterine) contraceptive device; Z68.34 Body mass index [BMI] 34.0-34.9, adult | CPT/HCPCS: 99395; 99459 ==

== ENCOUNTER 2025-04-25 10:45 | Outpatient (REF) | payer MEDICAID, SELFPAY ==
--- NOTE | ~2025-04-25 | US_ITS ---
EXAMINATION: US PELVIS CLINICAL INFORMATION: Abnormal bleeding. COMPARISON: February 22, 2019 TECHNIQUE: Ultrasound of the pelvis is performed using both transabdominal and transvaginal transducers along with Doppler. Transvaginal imaging is performed due to inadequate visualization transabdominally. FINDINGS: Uterus: The uterus is in anteversion flexion and measures 11 x 5 x 6 cm. There is an intrauterine contraceptive device in place. The double wall endometrial thickness is 4 mm. The uterus is smooth in contour and has normal myometrial echogenicity. No visible fibroid. Adnexa: Both ovaries are visualized. There is normal color flow to the adnexa. There is no ovarian torsion. There is no pelvic ascites or fluid collection. Right ovary measures 3 x 2 x 2 cm. Volume: 4 cc. Left ovary measures 4 x 2 x 3 cm. Volume: 17 cc. There is a 2.4 cm anechoic structure. US/US pelvic and transvaginal IMPRESSION: Intrauterine contraceptive device in place. No ovarian torsion. 2.4 cm dominant follicle, left ovary. Electronically signed by: Sha Baldwin MD 04/25/2025 12:05 PM EDT
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
== END 2025-04-25 10:46 | disposition home or self-care (01) ==
LOC: HO.US 10:45
PROVIDERS: Visit Provider Obstetrics & Gynecology
DX: N93.9 Abnormal uterine and vaginal bleeding, unspecified (principal); Z97.5 Presence of (intrauterine) contraceptive device
CPT/HCPCS: 58100; 76830; 76856; 81025; 99212

== ENCOUNTER → 2025-04-25 10:57 | Outpatient (BNV) | payer MEDICAID, SELFPAY | PROVIDERS: Visit Provider Radiology Diagnostic Radiology | DX: N83.02 Follicular cyst of left ovary (principal); N93.9 Abnormal uterine and vaginal bleeding, unspecified | CPT/HCPCS: 76830; 76856 ==

== ENCOUNTER 2025-04-25 13:08 | Outpatient (AMB) | payer MEDICAID, SELFPAY ==
--- NOTE | 2025-04-25 13:55 | MHC.OFFVIS ---
Vital Signs 04/25/25 13:58 Height 5 ft 6 in Weight 212 lb BMI 34.2 Intake Visit Reasons: vaginal bleeding Hook And Eye Attacher Required: No Information Interpreted: non-clinical & clinical Operator Command Support Systems: Operator Command Support Systems Present (Flavia Arias CASSIE) Accompanied by: Self / Same As Patient Allergies No Known Allergies (No Known Allergies*) Allergy (Verified 04/25/25 13:59) HPI Comments Details: Presenting complaining of continuous vaginal bleeding associated with pelvic cramping over the last 2 and half months since Mirena IUD insertion. The workup done for AUB prior to IUD insertion include the following: H&H 13.4/40.7 TSH, hCG, GC/CT negative Co testing done in 03/11 was negative Pelvic ultrasound done today showed the following: IMPRESSION: Intrauterine contraceptive device in place. No ovarian torsion. 2.4 cm dominant follicle, left ovary. Last co testing in 03/11 was negative [facility] Surgical History History of loop electrical excision procedure (LEEP) History of tubal ligation Social History Household Members: Spouse and Children Housing: House Alcohol intake: never Patient Tobacco Use Status: Never used Tobacco Female Reproductive History Menstrual Age of Menarche: 11 Review of Systems Const All systems reviewed & are unremarkable except as noted in HPI and below Physical Exam Vital Signs: BMI result Body Mass Index 34.2 General: Yes no CVA tenderness External Female Exam: normal external appearance and normal appearance of the urethra Speculum Exam - Vagina: normal appearance of the vagina, normal palpation, no lesions and no masses Speculum Exam - Cervix: normal appearance of the cervix, normal palpation, no lesions, no masses, nontender and Other cervical findings present (IUD string in place) Bimanual exam- vagina & uterus: normal bimanual exam, normal palpation, uterine size normal, normal palpation, uterine shape normal, No Cervical tenderness present and non-tender Bimanual Exam- Adnexa, other: normal adnexae Back/Spine/Pelvis Back: no CVA tenderness Office Procedures Endometrial Biopsy Details: The patient was counseled regarding the indication and benefits of endometrial sampling to rule out endometrial pathology including not limited to endometrial hyperplasia or endometrial cancer and others; The alternatives (Either do nothing vs. hysteroscopy D&C) & the risks were discussed with the patient including but not limited: pain, uterine perforation, bleeding, infection, possible injury to bladder, bowel, ureter, possible need for blood transfusion with all its possible risks. The patient verbalized understanding all questions answered and signed consent. Urine test done in the office was negative The patient was placed into the dorsal lithotomy position; a speculum was inserted in the vagina. Using aseptic technique for the procedure, the cervix was cleansed with Betadine. The anterior lip of the cervix was grasped with a single tooth tenaculum. The uterus was sounded to 7 cm with a 4 mm Pipelle was used. Tissues samples were obtained and placed in formalin, in a patient labeled container and sent to the pathology department. At the end of the procedure, there was minimal bleeding noted The patient tolerated the procedure well and was discharged in good condition with the following instructions: Nothing in the vagina until the bleeding stops. No sex until the bleeding stops, to call if any of the following occurs: fever (>100.4), flu-like symptoms, abdominal pain, heavy bleeding, four smelling vaginal discharge. The patient was instructed to schedule a Follow up appointment in 2 weeks to discuss pathology results of the biopsy and treatment options. This note was generated with a voice recognition program. Some errors may have been overlooked during the review of this note. Sometimes these errors may affect the content or meaning of a given sentence. [id number] Biopsy Results AMB Test Urine AMB Test Urine Negative Last Edit by Flavia Arias CMA on 04/25/25 14:03 Results Reviewed Results Reviewed: Laboratory Last Values Tst Clinic Negative 04/25/25 14:03 Assessment & Plan Assessment & Plan (1) Abnormal uterine bleeding (AUB): Comment: On Mirena IUD Code(s): N93.9 - Abnormal uterine and vaginal bleeding, unspecified Category: Medical Plan: Urine test done in the office was negative. CBC ordered, recommended EMB to rule out endometrial pathology including endometrial hyperplasia or malignancy, EMB done, see procedure note Instructions given the patient does not follow-up in 2-3 weeks will discuss different options of treatment including Mirena IUD removal and switching to other control pills or cyclic Provera or possible endometrial ablation. All questions answered, the patient verbalized understanding Orders: Orders US pelvic and transvaginal Today N93.9 - Abnormal uterine and vaginal bleeding, unspecified AMB HCG Urine Test Today Z32.02 - Encounter for test, result negative Complete Blood Count no Diff Today N93.9 - Abnormal uterine and vaginal bleeding, unspecified AMB Endometrial Biopsy Today N93.9 - Abnormal uterine and vaginal bleeding, unspecified Coding Level of Care Code Est Pt Level 3 (98479) Procedure Only Diagnoses Abnormal uterine bleeding (AUB) N93.9 CPT Codes Endometrial Biopsy - CPT: 30454-[id number] Biopsy ([id number])
[2025-04-25 13:58] VITALS: BMI 34.2
== END 2025-04-25 14:34 | disposition home or self-care (01) ==
LOC: HO.HWS 13:08
PROVIDERS: Visit Provider Obstetrics & Gynecology
DX: N93.9 Abnormal uterine and vaginal bleeding, unspecified (principal); Z32.02 Encounter for pregnancy test, result negative
CPT/HCPCS: 58100; 99213

== ENCOUNTER 2025-04-25 16:36 | Outpatient (REF) | payer MEDICAID, SELFPAY | END 2025-04-25 16:37 | disposition home or self-care (01) | LOC: HO.LNP 16:36 | PROVIDERS: Visit Provider Obstetrics & Gynecology | DX: Z32.02 Encounter for pregnancy test, result negative (principal); N93.9 Abnormal uterine and vaginal bleeding, unspecified | CPT/HCPCS: 88305 ==

== ENCOUNTER 2025-05-09 08:31 | Outpatient (AMB) | payer MEDICAID, SELFPAY ==
--- NOTE | 2025-05-09 08:32 | MHC.OFFVIS ---
Intake Visit Reasons: EMB results Allergies No Known Allergies (No Known Allergies*) Allergy (Verified 04/25/25 13:59) HPI Comments Details: The patient scheduled a telehealth visit after endometrial biopsy. The patient has no complaints, no vaginal bleeding, no feverishness chills or abdominal pain. The endometrial biopsy pathology report showed the following: Endometrium, biopsy: Fragments of benign endometrium with pseudodecidual change, consistent with exogenous progestin; extensive breakdown and organizing clot; no atypia identified CBC ordered on 04/25/2025, but not done yet Vaginal bleeding has completely resolved [facility] Surgical History History of loop electrical excision procedure (LEEP) History of tubal ligation Social History Household Members: Spouse and Children Housing: House Alcohol intake: never Patient Tobacco Use Status: Never used Tobacco Female Reproductive History Menstrual Age of Menarche: 11 Review of Systems Const All systems reviewed & are unremarkable except as noted in HPI and below Reports as per HPI and Reports no additional complaints GI Reports no additional complaints Reports no additional complaints Telehealth Telehealth Telehealth Platform: [employer] Location of provider rendering services: practice address Location of patient: address on file Patient Identification confirmed using: Name, : Yes Telehealth method: video Patient verbally consented to treatment: Yes Patient verbally consented to billing insurance company: Yes Patient informed of any privacy concerns related to visit: Yes Minutes spent on Phone/Video with Pt.: 2 Assessment & Plan Assessment & Plan (1) Abnormal uterine bleeding (AUB): Comment: On Mirena IUD Code(s): N93.9 - Abnormal uterine and vaginal bleeding, unspecified Category: Medical Plan: Recommended the patient to have her CBC done Discussed with the patient the results of the work up done and options of treatment including staying on Mirena IUD or use other options of treatment including but not limited to Lysteda, BCP's, endometrial ablation and hysterectomy. All pros, cons, risks and benefits if each option was discussed with the patient and the patient decided to stay on Mirena IUD. Instructions given the patient to call if bleeding recurs. All questions answered the patient verbalized understanding. I spent a total of 20 minutes reviewing the chart, talking to the patient via video and documenting in the medical record. Coding Level of Care Code Tele Est Pt Level 3 (58208) Diagnoses Abnormal uterine bleeding (AUB) N93.9
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
== END 2025-05-09 09:04 | disposition home or self-care (01) ==
LOC: HO.HWS 08:31
PROVIDERS: Visit Provider Obstetrics & Gynecology
DX: N93.9 Abnormal uterine and vaginal bleeding, unspecified (principal)
CPT/HCPCS: 99213

== ENCOUNTER 2025-05-23 12:16 | Outpatient (REF) | payer MEDICAID, SELFPAY ==
--- OUTSIDE RECORDS SUMMARY | 2025-05-23 11:15 | XMS_ITS | Encounter Summary ---
Author Organization [employer] Address [address] [place] [address] Care Team Providers Care House Director Name Role Phone Maren Abdullahi MD Primary Care Provider + Reason for Visit * Reason Comments Follow-up Encounter Details Date Type Department Care Team ([facility] st Contact Info) Description 05/23/2025 11:15 AM EDT Office Visit [facility]INE [address] [place], [place] [phone] Maren Abdullahi MD [address] [place], [place] [phone] DUB (dysfunctional uterine bleeding) (Primary Dx); Dietary counseling; Exercise counseling; Class 1 obesity due to excess calories without serious comorbidity with body mass index (BMI) of 34.0 to 34.9 in adult Social History Tobacco Use Types Packs/Day Years Used Date Smoking Tobacco: Never Passive Smoke Exposure: Never Smokeless Tobacco: Never Tobacco Cessation:Counseling Given: Not Answered Alcohol Use Standard Drinks/Week Comments Never 0 (1 standard drink = 0.6 oz pur e alcohol) Depression Answer Date Recorded Patient Health Questionnaire-9 Score 0 05/23/2025 Patient Health Questionnaire-9 Score 0 05/23/2025 Last PHQ-9: Questionnaire Data Not on file 0 05/23/2025 Housing Stability Answer Date Recorded What is [...] Date Recorded Patient Health Questionnaire-2 Score 0 05/23/2025 Internet Access Answer Date Recorded Internet Access Q1 Yes 02/10/2025 Internet Access Q2 Not on file 02/10/2025 Comments No Sex and Gender Information Value Date Recorded Sex Assigned at Female 08/18/2022 10:14 AM EDT Legal Sex Female 10:14 AM EDT Gender Identity Female 08/18/2022 10:14 AM EDT Sexual Orientation Choose not to disclose 2021 10:14 AM EDT documented as of this encounter Last Filed Vital Signs Vital Sign Reading Time Taken Comments Blood Pressure 118/80 05/23/2025 11:17 AM EDT Pulse 80 05/23/2025 11:17 AM EDT Temperature 36.8 C (98.3 F) 05/23/2025 11:17 AM EDT Respiratory Rate 20 05/23/2025 11:17 AM EDT Oxygen Saturation - - Inhaled Oxygen Concentration - - Weight 99.8 kg (220 lb) 05/23/2025 11:17 AM EDT Height 170.2 cm (5' 7 ) 05/23/2025 11:17 AM EDT Body Mass Index 34.46 05/23/2025 11:17 AM EDT documented in this encounter Functional Status * Over the past 2 weeks, how often have you been bothered by any of the following problems? Question Answer Date of Assessment Author Patient Health Questionnaire-2 Score 0 05/23/2025 11:29 AM EDT Jacqueline Ribera MA * Little interest or pleasure in doing things Answer Date of Assessment Author Not at all 05/23/2025 11:29 AM EDT Jacqueline Devries MA * Feeling down, depressed, or hopeless Answer Date of Assessment Author Not at all 05/23/2025 11:29 AM EDT Jacqueline Devries MA * Trouble falling or staying asleep, or sleeping too much Answer Date of Assessment Author Not at all 05/23/2025 11:29 AM EDT Jacqueline Devries MA * Feeling tired or having little energy Answer Date of Assessment Author Not at all 05/23/2025 11:29 AM EDT Jacqueline Devries MA * Poor appetite or overeating Answer Date of Assessment Author Not at all 05/23/2025 11:29 AM EDT Jacqueline Devries MA * Feeling bad about yourself - or that you are a failure or have let yourself or your family down Answer Date of Assessment Author Not at all 05/23/2025 11:29 AM EDT Jacqueline Devries MA * Trouble concentrating on things, such as reading the newspaper or watching television Answer Date of Assessment Author Not at all 05/23/2025 11:29 AM EDT Jacqueline Devries MA * Moving or speaking so slowly that other people could have noticed? Or the opposite - being so fidgety or restless that you have been moving around a lot more than usual. Answer Date of Assessment Author Not at all 05/23/2025 11:29 AM EDT Jacqueline Devries MA * Thoughts that you would be better off or hurting yourself in some way Answer Date of Assessment Author Not at all 05/23/2025 11:29 AM EDT Jacqueline Devries MA * Patient Health Questionnaire-9 Score Answer Date of Assessment Author 0 05/23/2025 11:29 AM EDT Jacqueline Devries MA documented as of this encounter Plan of Treatment Upcoming Encounters Date Type Department Care Team (Late st Contact Info) Description 08/03/2025 9:00 AM EDT Telemedicine [facility] MEDICINE [address] [place] [phone] Maren Abdullahi MD [address] [place] [address] Scheduled Orders Name Type Priority Associated Diagnoses Orde r Schedule Basic Metabolic Panel Lab Routine Class 1 obesity due to excess calories without serious comorbidity with body mass index (BMI) of 34.0 to 34.9 in adult Expected: 05/23/2025 (Approximate), Expires: 05/23/2026 TSH with Reflex to Free T4 Lab Routine DUB (dysfunctional uterine bleeding) Expected: 05/23/2025 (Approximate), Expires: 05/23/2026 Hemoglobin A1c Lab Routine Class 1 obesity due to excess calories without serious comorbidity with body mass index (BMI) of 34.0 to 34.9 in adult Expected: 05/23/2025 (Approximate), Expires: 05/23/2026 CBC auto differential Lab Routine DUB (dysfunctional uterine bleeding) Expected: 05/23/2025 (Approximate), Expires: 05/23/2026 Ferritin Lab Routine DUB (dysfunctional uterine bleeding) Expected: 05/23/2025, Expires: 05/23/2026 documented as of this encounter Visit Diagnoses Diagnosis DUB (dysfunctional uterine bleeding)- Primary Other disorder of menstruation and other abnormal bleeding from female genital tract Dietary counseling Dietary surveillance and counseling Exercise counseling Class 1 obesity due to excess calories without serious comorbidity with body mass index (BMI) of 34.0 to 34.9 in adult documented in this encounter Additional Health Concerns Assessment Noted Time PHQ-9 Depression Total Score: 0 05/23/20 25 11:29 AM EDT documented as of this encounter Care Teams House Director Relationship Specialty Start Date End Date Maren Abdullahi MD [address] [place] [address] PCP - General Family Medicine 11/23/20 documented as of this encounter
[2025-05-23 13:32] LABS: MANUAL DIFF FLAG NO
[2025-05-23 13:52] LABS: Hematocrit 39.5 % (37.0-47.0); Hemoglobin 13.4 g/dl (12.0-16.0); Imm Gran Abs Auto 0.01 X10*3/uL (0.00-0.03); Imm Gran Pct Auto 0.2 % (0.0-0.4); Lymphocytes Absolute Auto 1.7 X10*3/uL (1.2-4.9); Mean Corpuscular HGB Conc 33.9 g/dl (31.0-35.0); Mean Corpuscular Hemoglobin 31.2 pg (27.0-33.0); Mean Corpuscular Volume 91.9 fL (80.0-98.0); NRBC Abs Auto 0.000 X10*3/uL (0.0-0.012); NRBC Pct Auto 0.0 /100WBC (0.0-0.2); Platelet Count 284 X10*3/uL (160-400); Red Blood Count 4.30 X10*6/uL (4.20-5.50); White Blood Count 6.5 X10*3/uL (4.8-10.8)
[2025-05-23 14:07] LABS: Anion Gap 8 (12-20); Blood Urea Nitrogen 13 mg/dL (9-16); Calcium 9.1 mg/dL (8.4-10.2); Carbon Dioxide 30 mmol/L (22-29); Chloride 107 mmol/L (96-108); Estimated Glomerular Filt Rate > 60; Potassium 4.1 mmol/L (3.3-5.1); Sodium 141 mmol/L (135-145)
[2025-05-23 14:13] LABS: Ferritin 25 ng/mL (10-122)
[2025-05-23 14:24] LABS: Hemoglobin A1C 160.8658 umol/L; Total Hemoglobin (HGBA1C) 5083.0862 umol/L
== END 2025-05-23 12:17 | disposition home or self-care (01) ==
LOC: HO.HHCL 12:16
PROVIDERS: PCP Internal Medicine; Referring Provider Obstetrics & Gynecology; Visit Provider Internal Medicine
DX: N93.8 Other specified abnormal uterine and vaginal bleeding (principal); E66.811 Obesity, class 1; Z68.34 Body mass index [BMI] 34.0-34.9, adult
CPT/HCPCS: 36415; 80048; 82728; 83036; 84443; 85025

== ENCOUNTER 2025-06-09 11:13 | Outpatient (AMB) | payer MEDICAID, SELFPAY ==
--- NOTE | 2025-06-09 11:14 | MHC.OFFVIS ---
Intake Visit Reasons: Still bleeding with IUD Budget Coordinator Required: No Information Interpreted: non-clinical & clinical Allergies No Known Allergies (No Known Allergies*) Allergy (Verified 06/09/25 11:14) HPI Comments Details: The patient scheduled a telehealth visit for follow-up complaining of persistent vaginal bleeding since IUD insertion on 02/13/2025. The patient is state that her bleeding has improved the last 24 hours The following workup was done.: 05/23/2025 H&H= 13.4/39.5, TSH within no 04/26/2025 Endometrial biopsy pathology showed following: Endometrium, biopsy: Fragments of benign endometrium with pseudodecidual change, consistent with exogenous progestin; extensive breakdown and organizing clot; no atypia identified Co testing was done in 03/11 was negative. 05/12 Pelvic ultrasound showed the following: IMPRESSION: Intrauterine contraceptive device in place. No ovarian torsion. 2.4 cm dominant follicle, left ovary. [facility] Surgical History History of loop electrical excision procedure (LEEP) History of tubal ligation Social History Household Members: Spouse and Children Housing: House Alcohol intake: never Patient Tobacco Use Status: Never used Tobacco Female Reproductive History Menstrual Age of Menarche: 11 Review of Systems Const All systems reviewed & are unremarkable except as noted in HPI and below Reports as per HPI and Reports no additional complaints GI Reports no additional complaints Reports no additional complaints Telehealth Telehealth Telehealth Platform: Telephone Location of provider rendering services: practice address Location of patient: address on file Patient Identification confirmed using: Name, : Yes Telehealth method: video Patient verbally consented to treatment: Yes Patient verbally consented to billing insurance company: Yes Patient informed of any privacy concerns related to visit: Yes Minutes spent on Phone/Video with Pt.: 3 Assessment & Plan Assessment & Plan (1) Abnormal uterine bleeding (AUB): Comment: On Mirena IUD Code(s): N93.9 - Abnormal uterine and vaginal bleeding, unspecified Category: Medical Plan: Recommended urine test a to report a positive test. Discussed with the patient the results of the work up done and options of treatment including BCP's, stay on Mirena IUD, endometrial ablation and hysterectomy. All pros, cons, risks and benefits if each option was discussed with the patient and the patient decided to think stay on Mirena IUD for now. Instructions given to patient to call if symptoms persist or get worse. All questions answered the patient verbalized understanding. I spent a total of 20 minutes reviewing the chart, talking to the patient via video and documenting in the medical record. Coding Level of Care Code Tele Est Pt Level 3 (63902) Diagnoses Abnormal uterine bleeding (AUB) N93.9
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
== END 2025-06-09 12:13 | disposition home or self-care (01) ==
LOC: HO.HWS 11:13
PROVIDERS: PCP Internal Medicine; Visit Provider Obstetrics & Gynecology
DX: N93.9 Abnormal uterine and vaginal bleeding, unspecified (principal)
CPT/HCPCS: 99213

== ENCOUNTER 2025-09-19 08:49 | Outpatient (AMB) | payer MEDICAID, SELFPAY ==
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
--- OUTSIDE RECORDS SUMMARY | 2025-09-19 09:00 | XMS_ITS | Encounter Summary ---
Author Organization [employer] Address [address] [place] [address] Care Team Providers Care Oil And Gas Field Technician Name Role Phone Maren Abdullahi MD Primary Care Provider + Reason for Visit * Reason Comments Med Refill Encounter Details Date Type Department Care Team (Late st Contact Info) Description 08/10/2025 Refill [facility] [address] [place], [place] [phone] Tammy Copeladn MD [address] [place] [phone] Social History Tobacco Use Types Packs/Day Years [...] AM EDT documented as of this encounter Plan of Treatment Not on file documented as of this encounter Visit Diagnoses Not on filedocumented in this encounter Additional Health Concerns Assessment Noted Time PHQ-9 Depression Total Score: 0 05/23/20 11:29 AM EDT documented as of this encounter Care Teams Oil And Gas Field Technician Relationship Specialty Start Date End Date Maren Abdullahi MD [address] [place] [phone] PCP - General Family Medicine 11/23/20 documented as of this encounter
[2025-09-19 09:15] VITALS: BP 122/76; BMI 35.5
--- NOTE | 2025-09-19 09:15 | A.OFFVIS_ITS ---
Vital Signs 09/19/25 09:15 Height 5 ft 6 in Weight 220 lb BMI 35.5 BP 122/76 Intake Visit Reasons: pelvic pain/bleeding with IUD Road Grader Operator Required: No Information Interpreted: non-clinical & clinical Sole Rounding Machine Operator: Sole Rounding Machine Operator Present (Flavia MATTHEWS) Accompanied by: Self / Same As Patient Allergies No Known Allergies (No Known Allergies*) Allergy (Verified 09/19/25 09:24) Is last menstrual period known: No (mirena) HPI Comments Details: Presenting requesting IUD removal continuous spotting/bleeding since Mirena IUD insertion. The following workup was done for AUB: 06/12 H&H= 13.4/39.5 TSH, hCG were negative in 06/12 11/12 GC and chlamydia were negative. 05/12 Endometrial biopsy pathology showed no evidence of hyperplasia and/or malignancy. 03/11 Co testing was done was negative. 05/12 Pelvic ultrasound showed the following: IMPRESSION: Intrauterine contraceptive device in place. No ovarian torsion. 2.4 cm dominant follicle, left ovary. 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 Sexually active: Yes Sexual orientation: Straight/Heterosexual Gender identity: Female Female Reproductive History Menstrual Age of Menarche: 11 Total pregnancies: 3 Full term: 3 Number of Living Children: 3 Review of Systems Const All systems reviewed & are unremarkable except as noted in HPI and below Physical Exam Vital Signs: Last Vital Signs BP 122/76 09/19/25 09:15 BMI result Body Mass Index 35.5 General: Yes no CVA tenderness External Female Exam: normal external appearance and normal appearance of the urethra Speculum Exam - Vagina: normal appearance of the vagina, normal palpation, no lesions and no masses Speculum Exam - Cervix: normal appearance of the cervix, normal palpation, no lesions, no masses, nontender and no other (IUD string in place) Bimanual exam- vagina & uterus: normal bimanual exam, normal palpation, uterine size normal, normal palpation, uterine shape normal, No Cervical tenderness present and non-tender Bimanual Exam- Adnexa, other: normal adnexae Back/Spine/Pelvis Back: no CVA tenderness Office Procedures IUD Insert/Removal Details Details: Counseling/Consent: After discussing with the patient the risks of the procedure including bleeding, infection, scar tissue formation, , possible injury to blood vessels or nerves, chronic arm pain, blood transfusion, and irregular unpredictable bleeding Alternative options were discussed with the patient including but not limited: Do nothing. The patient signed the consent and agreed with the plan; all questions answered. Urine test was done in the office and was negative Preop dx: Requesting IUD removal Op: IUD removal Post op dx: same EBL= 10 cc Procedure: The patient was put in the dorsal lithotomy position a speculum was inserted in the vagina the IUD thread identified. Using a Alessandra clamp the thread was grasped and the IUD pulled out with no complications. The patient tolerated the procedure well and was advised to use a different method for contraception. Discharge instructions: Instructions were given to the pt to call if temp>100.4, abdominal pain heavy vaginal bleeding, n/v occur. The patient verbalized understanding and all questions answered. This note was generated with a voice recognition program. Some errors may have been overlooked during the review of this note. Sometimes these errors may affect the content or meaning of a given sentence. 99101-OEC Removal Procedure code (CPT) selection complete Results AMB Test Urine AMB Test Urine Negative Last Edit by Flavia Arias CMA on 09:32 Results Reviewed Results Reviewed: Laboratory Last Values [facility] Negative 09/19/25 09:32 Assessment & Plan Assessment & Plan (1) Encounter for IUD removal: Code(s): Z30.432 - Encounter for removal of intrauterine contraceptive device Category: Medical Plan: Mirena IUD removed, see procedure note (2) Abnormal uterine bleeding (AUB): Code(s): N93.9 - Abnormal uterine and vaginal bleeding, unspecified Category: Medical Plan: Discussed with the patient the results of the work up done and options of treatment including control pills , Mirena IUD, cyclic Provera. All pros, cons, risks and benefits if each option was discussed with the patient and the patient decided to go ahead with BCP so a more detailed discussion re: control pills including mechanism of action, benefits (regular menses, less dysmenorrhea, less risk of ovarian cancer, ...), risks ( DVT, PE, Strokes, PR, ? increased breast ca, others). Instructions were given to use a back- up method for contraception x 1st 2 weeks, and to schedule a 3 months appointment for blood pressure check Orders: Orders AMB HCG Urine Test Today Z32.02 - Encounter for test, result negative Medications: New desogestrel-ethinyl estradiol 0.15-0.03 mg (Apri) 1 tab PO DAILY 28 tabs 2RF 28 days Coding Level of Care Code Est Pt Level 3 (29586) Procedure Only Diagnoses Encounter for IUD removal Z30.432 Abnormal uterine bleeding (AUB) N93.9 CPT Codes Details - CPT: 64028-JIG Removal ([id number])
== END 2025-09-19 09:52 | disposition home or self-care (01) ==
LOC: HO.HWS 08:50
PROVIDERS: PCP Internal Medicine; Visit Provider Obstetrics & Gynecology
DX: Z30.432 Encounter for removal of intrauterine contraceptive device (principal); N93.9 Abnormal uterine and vaginal bleeding, unspecified; Z32.02 Encounter for pregnancy test, result negative
CPT/HCPCS: 58301; 99213

== ENCOUNTER → 2025-09-19 08:49 | Outpatient (BNVA) | payer MEDICAID, SELFPAY | PROVIDERS: PCP Internal Medicine; Visit Provider Obstetrics & Gynecology | DX: Z30.432 Encounter for removal of intrauterine contraceptive device (principal); N93.9 Abnormal uterine and vaginal bleeding, unspecified; Z32.02 Encounter for pregnancy test, result negative | CPT/HCPCS: 58301; 81025; 99212 ==

== ENCOUNTER 2025-09-27 09:23 | Outpatient (REF) | payer MEDICAID, SELFPAY ==
[2025-09-27 11:07] LABS: Hematocrit 36.8 % (37.0-47.0); Hemoglobin 12.6 g/dl (12.0-16.0); Mean Corpuscular HGB Conc 34.2 g/dl (31.0-35.0); Mean Corpuscular Hemoglobin 31.1 pg (27.0-33.0); Mean Corpuscular Volume 90.9 fL (80.0-98.0); NRBC Abs Auto 0.000 X10*3/uL (0.0-0.012); NRBC Pct Auto 0.0 /100WBC (0.0-0.2); Platelet Count 280 X10*3/uL (160-400); Red Blood Count 4.05 X10*6/uL (4.20-5.50); White Blood Count 7.4 X10*3/uL (4.8-10.8)
== END 2025-09-27 09:24 | disposition home or self-care (01) ==
LOC: HO.LAB 09:23
PROVIDERS: PCP Internal Medicine; Visit Provider Obstetrics & Gynecology
DX: Z32.02 Encounter for pregnancy test, result negative (principal); N39.9 Disorder of urinary system, unspecified
CPT/HCPCS: 36415; 85027

== ENCOUNTER 2025-09-27 09:23 | Outpatient (AMB) | payer MEDICAID, SELFPAY ==
[2025-09-27 10:02] VITALS: BMI 35.5
--- NOTE | 2025-09-27 10:02 | MHC.OFFVIS ---
Vital Signs 09/27/25 10:02 Height 5 ft 6 in Weight 220 lb BMI 35.5 Intake Visit Reasons: Heavy menses Maintenance Worker Required: No Information Interpreted: non-clinical & clinical Wwe Wrestler: Wwe Wrestler Present (Flavia MATTHEWS) Accompanied by: Self / Same As Patient Allergies No Known Allergies (No Known Allergies*) Allergy (Verified 09/27/25 10:11) HPI Comments Details: Presenting complaining of vaginal bleeding since removing IUD and starting control pills that resolved as of today. 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 Sexual orientation: Straight/Heterosexual Gender identity: Female Female Reproductive History Menstrual Age of Menarche: 11 Review of Systems Const All systems reviewed & are unremarkable except as noted in HPI and below Physical Exam Vital Signs: BMI result Body Mass Index 35.5 General: Yes no CVA tenderness External Female Exam: normal external appearance and normal appearance of the urethra Speculum Exam - Vagina: normal appearance of the vagina, normal palpation, no lesions and no masses Speculum Exam - Cervix: normal appearance of the cervix, normal palpation, no lesions, no masses and nontender Bimanual exam- vagina & uterus: normal bimanual exam, normal palpation, uterine size normal, normal palpation, uterine shape normal, No Cervical tenderness present and non-tender Bimanual Exam- Adnexa, other: normal adnexae Back/Spine/Pelvis Back: no CVA tenderness Results AMB Test Urine AMB Test Urine Negative Last Edit by Flavia Arias CMA on 09/27/25 10:15 Results Reviewed Results Reviewed: Laboratory Last Values [facility] Clinic Negative 09/27/25 10:12 Assessment & Plan Assessment & Plan (1) Abnormal uterine bleeding (AUB): Code(s): N93.9 - Abnormal uterine and vaginal bleeding, unspecified Category: Medical Plan: UPT done in the office was negative. CBC ordered. Instructions given the patient to follow-up in three-month and to call or go to emergency room in case of recurrence of any heavy vaginal bleeding. All questions answered, the patient verbalized understanding Orders: Orders AMB HCG Urine Test Today Z32.02 - Encounter for test, result negative Complete Blood Count no Diff Today N93.9 - Abnormal uterine and vaginal bleeding, unspecified Coding Level of Care Code Est Pt Level 3 (66565) Diagnoses Abnormal uterine bleeding (AUB) N93.9
== END 2025-09-27 10:24 | disposition home or self-care (01) ==
LOC: HO.HWS 09:24
PROVIDERS: PCP Internal Medicine; Visit Provider Obstetrics & Gynecology
DX: Z32.02 Encounter for pregnancy test, result negative (principal); N93.9 Abnormal uterine and vaginal bleeding, unspecified
CPT/HCPCS: 99213